=== PATIENT | female | born 2000 | race African-American/Black ===

== ENCOUNTER 2025-01-23 03:56 | Emergency (ER) | payer SELFPAY ==
[~2025-01-23] VITALS: Ht 175.3 cm; Wt 81.6 kg
[2025-01-23] MEDS ORDERED: ONDANSETRON HCL/PF 4 MG/2 ML VIAL ONE ×2 (04:12→05:12)
[2025-01-23] MEDS: ONDANSETRON HCL/PF 4 MG/2 ML VIAL IVP ONE (04:42)
[2025-01-23] MEDS: IV NS 0.9% 1,000 ML BAG IV ONE (04:42)
[2025-01-23 04:46] LABS: BASOPHILS % (AUTO) 0.3 % (0.0-2.0); EOSINOPHILS % (AUTO) 0.1 % (0.0-6.0); HEMATOCRIT 46 % (33-45); HEMOGLOBIN 15.5 g/dL (11.5-14.8); LYMPHOCYTES # (AUTO) 1.9 K/uL (0.8-4.8); LYMPHOCYTES % (AUTO) 17.6 % (20.0-44.0); MEAN CORPUSCULAR HEMOGLOBIN 30 PG (26.0-33.0); MEAN CORPUSCULAR HGB CONC 34 g/dl (31.0-36.0); MEAN CORPUSCULAR VOLUME 89 fL (82-100); MONOCYTES % (AUTO) 8.9 % (2.0-12.0); NEUTROPHILS % (AUTO) 73.1 % (43.0-81.0); PLATELET COUNT (AUTO) 295 K/uL (150-450); RED BLOOD CELL COUNT(AUTO) 5.15 MIL/uL (4.0-5.2); RED CELL DISTRIBUTION WIDTH 13.4 % (11.5-15.0); WHITE BLOOD COUNT (AUTO) 10.9 K/uL (4.3-11.0)
[2025-01-23 04:51] LABS: CALCIUM, SERUM 9.3 mg/dL (8.5-10.1); CREATININE 0.9 mg/dL (0.6-1.3); POTASSIUM 3.2 mmol/L (3.5-5.1)
[2025-01-23 04:57] LABS: ALBUMIN 4.1 g/dL (3.4-5.0); BILIRUBIN,DIRECT 0.3 mg/dL (0.0-0.2); BILIRUBIN,TOTAL 1.2 mg/dL (0.2-1.0); TOTAL PROTEIN, SERUM 8.5 g/dL (6.4-8.2)
[2025-01-23] MEDS ORDERED: KETOROLAC TROMETHAMINE 15 MG/ML VIAL ONE (05:11)
[2025-01-23] MEDS: KETOROLAC TROMETHAMINE 15 MG/ML VIAL IV ONE (05:15)
[2025-01-23] MEDS: ONDANSETRON HCL/PF 4 MG/2 ML VIAL IV ONE (05:15)
[2025-01-23] MEDS ORDERED: METOCLOPRAMIDE HCL 10 MG/2 ML VIAL ONE (05:27)
[2025-01-23] MEDS: METOCLOPRAMIDE HCL 10 MG/2 ML VIAL IV ONE (05:33)
[2025-01-23] MEDS ORDERED: POTASSIUM CHLORIDE 20 MEQ TAB.PRT.SR PO ONE (06:53)
[2025-01-23] MEDS: POTASSIUM CHLORIDE 20 MEQ TAB.PRT.SR PO ONE (06:55)
[2025-01-23] MEDS ORDERED: POLY119P PO (07:15)
[2025-01-23] MEDS ORDERED: ONDA4TAB5 PO (07:15)
[2025-01-23 07:23] LABS: APPEARANCE,URINE CLEAR (CLEAR); BILIRUBIN,URINE 2+ (NEGATIVE); BLOOD, URINE NEGATIVE Ery/uL (NEGATIVE); COLOR,URINE YELLOW (YELLOW); KETONES,URINE 3+ mg/dL (NEGATIVE); LEUKOCYTE ESTERASE ,URINE NEGATIVE (NEGATIVE); NITRITE, URINE POSITIVE (NEGATIVE); PH,URINE 6.5 (5.0-8.0); PROTEIN,URINE 2+ mg/dl (NEGATIVE); UGLUCOSE NEGATIVE (NEGATIVE)
[2025-01-23 07:26] LABS: PREGNANCY TEST URINE QUAL NEGATIVE (NEGATIVE)
[2025-01-23 07:34] VITALS: BP 140/68; TEMP 98.5; O2SAT 98
[2025-01-23 07:36] LABS: RBC,URINE 0-2 /HPF (0-2)
[2025-01-23 07:37] LABS: ADD URINE CULTURE YES; BACTERIA,URINE Moderate /HPF (None Seen); CALCIUM OXALATE CRYSTALS,UR Rare /HPF (None Seen); MUCUS,URINE Moderate /LPF (None Seen)
[2025-01-23] MEDS ORDERED: ONDANSETRON 4 MG TAB.RAPDIS ONE (07:41)
[2025-01-23] MEDS: ONDANSETRON 4 MG TAB.RAPDIS SL ONE (07:44)
[2025-01-24] MEDS ORDERED: ONDA4TAB5 PO (13:25)
== END 2025-01-23 07:46 | disposition home or self-care (01) ==
LOC: ER 04:02
DX: R11.2 Nausea with vomiting, unspecified (principal); K59.00 Constipation, unspecified; J45.909 Unspecified asthma, uncomplicated; F17.200 Nicotine dependence, unspecified, uncomplicated; R10.2 Pelvic and perineal pain
CPT/HCPCS: 99285; 74176; 96374; 96375; 96361; 96376; 85025; 80048; 87086; 83690; 80076; 84703; 81001; 36415; 84702; J1885; J2765; J2405 ×2; J7030; Q0162

== ENCOUNTER 2025-01-24 08:49 | Emergency (ER) | payer SELFPAY ==
[~2025-01-24] VITALS: Ht 165.1 cm; Wt 86.6 kg
[~2025-01-24 08:49] MED LIST: ONDA4TAB5 PO; POLY119P PO
[2025-01-24 09:39] LABS: BASOPHILS # (AUTO) 0.1 K/uL (0.0-0.2); BASOPHILS % (AUTO) 0.8 % (0.0-2.0); EOSINOPHILS % (AUTO) 0.5 % (0.0-6.0); HEMATOCRIT 47 % (33-45); HEMOGLOBIN 15.6 g/dL (11.5-14.8); LYMPHOCYTES # (AUTO) 1.9 K/uL (0.8-4.8); LYMPHOCYTES % (AUTO) 25.7 % (20.0-44.0); MEAN CORPUSCULAR HEMOGLOBIN 30 PG (26.0-33.0); MEAN CORPUSCULAR HGB CONC 33 g/dl (31.0-36.0); MEAN CORPUSCULAR VOLUME 90 fL (82-100); MONOCYTES # (AUTO) 0.7 K/uL (0.1-1.30); MONOCYTES % (AUTO) 8.9 % (2.0-12.0); NEUTROPHILS # (AUTO) 4.7 K/uL (1.8-8.9); NEUTROPHILS % (AUTO) 64.1 % (43.0-81.0); PLATELET COUNT (AUTO) 324 K/uL (150-450); RED BLOOD CELL COUNT(AUTO) 5.26 MIL/uL (4.0-5.2); RED CELL DISTRIBUTION WIDTH 13.5 % (11.5-15.0); WHITE BLOOD COUNT (AUTO) 7.4 K/uL (4.3-11.0)
[2025-01-24] MEDS: IV NS 0.9% 1,000 ML BAG IV ONE ×2 (09:43→10:15)
[2025-01-24 09:49] LABS: CALCIUM, SERUM 10.2 mg/dL (8.5-10.1); CREATININE 0.9 mg/dL (0.6-1.3); POTASSIUM 3.2 mmol/L (3.5-5.1)
[2025-01-24 09:50] VITALS: TEMP 99
[2025-01-24 09:55] LABS: ALBUMIN 4.7 g/dL (3.4-5.0); BILIRUBIN,DIRECT 0.3 mg/dL (0.0-0.2); BILIRUBIN,TOTAL 1.3 mg/dL (0.2-1.0); TOTAL PROTEIN, SERUM 9.3 g/dL (6.4-8.2)
[2025-01-24] MEDS ORDERED: HALOPERIDOL LACTATE INJ 5 MG/ML VIAL ONE (10:09)
[2025-01-24] MEDS ORDERED: diphenhydrAMINE HCL 50 MG/ML VIAL ONE (10:09)
[2025-01-24] MEDS: diphenhydrAMINE HCL 50 MG/ML VIAL IV ONE (10:14)
[2025-01-24] MEDS: HALOPERIDOL LACTATE INJ 5 MG/ML VIAL IV ONE (10:15)
[2025-01-24 10:39] LABS: APPEARANCE,URINE CLEAR (CLEAR); BILIRUBIN,URINE NEGATIVE (NEGATIVE); BLOOD, URINE NEGATIVE Ery/uL (NEGATIVE); COLOR,URINE YELLOW (YELLOW); KETONES,URINE TRACE mg/dL (NEGATIVE); LEUKOCYTE ESTERASE ,URINE NEGATIVE (NEGATIVE); NITRITE, URINE NEGATIVE (NEGATIVE); PROTEIN,URINE TRACE mg/dl (NEGATIVE); UGLUCOSE NEGATIVE (NEGATIVE)
[2025-01-24 10:42] LABS: PREGNANCY TEST URINE QUAL NEGATIVE (NEGATIVE)
[2025-01-24 10:56] LABS: ADD URINE CULTURE NO; BACTERIA,URINE Rare /HPF (None Seen); RBC,URINE 0-2 /HPF (0-2); WBC,URINE 0-2 /HPF (0-3)
[2025-01-24] MEDS ORDERED: ONDA4TAB5 PO (13:25)
[2025-01-24 14:44] VITALS: BP 124/69; O2SAT 100
== END 2025-01-24 14:55 | disposition home or self-care (01) ==
LOC: ER 09:00
DX: R11.15 Cyclical vomiting syndrome unrelated to migraine (principal); F17.200 Nicotine dependence, unspecified, uncomplicated; J45.909 Unspecified asthma, uncomplicated; K59.00 Constipation, unspecified; Z60.2 Problems related to living alone; Z79.899 Other long term (current) drug therapy
CPT/HCPCS: 99285; 96374; 96361; 96375; 93005; 85025; 80048; 83690; 80076; 84703; 81001; 36415; J1200; J1630; J7030 ×2

== ENCOUNTER 2025-04-03 07:54 | Emergency (ER) | payer SELFPAY ==
[~2025-04-03] VITALS: Ht 167.6 cm; Wt 77.1 kg
[2025-04-03] MEDS ORDERED: HALOPERIDOL LACTATE INJ 5 MG/ML VIAL ONE (08:25)
[2025-04-03] MEDS ORDERED: FAMOTIDINE/PF INJ 20 MG/2 ML VIAL IV ONE (08:25)
[2025-04-03] MEDS: HALOPERIDOL LACTATE INJ 5 MG/ML VIAL IV ONE (08:37)
[2025-04-03] MEDS: FAMOTIDINE/PF INJ 20 MG/2 ML VIAL IV ONE (08:37)
[2025-04-03] MEDS: IV NS 0.9% 1,000 ML BAG IV ONE (08:38)
[2025-04-03 08:41] LABS: PLATELET COUNT (AUTO) 252 K/uL (150-450); RED BLOOD CELL COUNT(AUTO) 4.19 MIL/uL (4.0-5.2); RED CELL DISTRIBUTION WIDTH 13.1 % (11.5-15.0); WHITE BLOOD COUNT (AUTO) 8.1 K/uL (4.3-11.0)
[2025-04-03 08:48] LABS: CALCIUM, SERUM 9.2 mg/dL (8.5-10.1); CREATININE 0.9 mg/dL (0.6-1.3); SODIUM SERUM 141.0 mmol/L (136-145); UREA NITROGEN, BLOOD 12.0 mg/dL (7-18)
[2025-04-03 08:54] LABS: ASPARTATE AMINOTRANSFERASE 21.0 U/L (15-37); TOTAL PROTEIN, SERUM 7.8 g/dL (6.4-8.2)
[2025-04-03 09:53] LABS: PREGNANCY TEST URINE QUAL NEGATIVE (NEGATIVE)
[2025-04-03] MEDS ORDERED: ONDA4TAB5 PO (12:23)
[2025-04-03 13:54] VITALS: BP 155/98; TEMP 98.5; O2SAT 99
== END 2025-04-03 13:55 | disposition home or self-care (01) ==
LOC: ER 07:56
DX: R11.2 Nausea with vomiting, unspecified (principal); R10.10 Upper abdominal pain, unspecified; R94.31 Abnormal electrocardiogram [ECG] [EKG]; F12.90 Cannabis use, unspecified, uncomplicated; F17.200 Nicotine dependence, unspecified, uncomplicated; J45.909 Unspecified asthma, uncomplicated; Z87.442 Personal history of urinary calculi; Z87.19 Personal history of other diseases of the digestive system; Z60.2 Problems related to living alone
CPT/HCPCS: 99284; 96374; 96375; 96361; 93005; 85025; 80048; 83690; 80076; 36415; 84703 ×2; J1200; J1630; J1308; J7030

== ENCOUNTER 2025-07-18 08:08 | Emergency (ER) | payer MEDICAID ==
[~2025-07-18] VITALS: Ht 167.6 cm; Wt 81.6 kg
[2025-07-18] MEDS: METOCLOPRAMIDE HCL 10 MG/2 ML VIAL IV ONE ×2 (09:30→12:28)
[2025-07-18] MEDS: IV NS 0.9% 1,000 ML BAG IV ONE ×2 (09:30→12:15)
[2025-07-18] MEDS ORDERED: HALOPERIDOL LACTATE INJ 5 MG/ML VIAL ONE (09:33)
[2025-07-18] MEDS: HALOPERIDOL LACTATE INJ 5 MG/ML VIAL IM ONE (09:38)
[2025-07-18 12:06] VITALS: TEMP 98
[2025-07-18] MEDS ORDERED: PANTOPRAZOLE 40 MG VIAL ONE (12:19)
[2025-07-18] MEDS ORDERED: METOCLOPRAMIDE HCL 10 MG/2 ML VIAL ONE (12:20)
[2025-07-18] MEDS: PANTOPRAZOLE 40 MG VIAL IV ONE (12:28)
[2025-07-18 12:42] LABS: PLATELET COUNT (AUTO) 327 K/uL (150-450); RED BLOOD CELL COUNT(AUTO) 4.53 MIL/uL (4.0-5.2); RED CELL DISTRIBUTION WIDTH 12.0 % (11.5-15.0); WHITE BLOOD COUNT (AUTO) 7.8 K/uL (4.3-11.0)
[2025-07-18 12:52] LABS: CALCIUM, SERUM 8.9 mg/dL (8.5-10.1); CREATININE 0.6 mg/dL (0.6-1.3); SODIUM SERUM 141.0 mmol/L (136-145); UREA NITROGEN, BLOOD 9.0 mg/dL (7-18)
[2025-07-18 12:58] LABS: ASPARTATE AMINOTRANSFERASE 201.0 U/L (15-37); TOTAL PROTEIN, SERUM 8.9 g/dL (6.4-8.2)
[2025-07-18] MEDS ORDERED: METO-295 PO (13:23)
[2025-07-18 13:25] LABS: APPEARANCE,URINE CLEAR (CLEAR); BLOOD, URINE 3+ Ery/uL (NEGATIVE); LEUKOCYTE ESTERASE ,URINE NEGATIVE (NEGATIVE); NITRITE, URINE POSITIVE (NEGATIVE); UGLUCOSE NEGATIVE (NEGATIVE)
[2025-07-18 13:27] LABS: ADD URINE CULTURE YES; SQUAMOUS EPITHELIAL CELL,UR Rare /HPF (None Seen)
[2025-07-18 14:00] VITALS: BP 138/85; O2SAT 98
[2025-07-19] MEDS ORDERED: ONDA4TAB5 PO (11:21)
== END 2025-07-18 14:12 | disposition home or self-care (01) ==
LOC: ER 08:08
DX: R11.15 Cyclical vomiting syndrome unrelated to migraine (principal); J45.909 Unspecified asthma, uncomplicated; F17.200 Nicotine dependence, unspecified, uncomplicated; F12.90 Cannabis use, unspecified, uncomplicated; R10.20 Pelvic and perineal pain unspecified side; Z60.2 Problems related to living alone
CPT/HCPCS: 99284; 96374; 96361; 96375; 85025; 87086; 83690; 81001; 36415; 80053; 96372; J1630; J2765; J7030 ×2; J2470

== ENCOUNTER 2025-07-19 08:40 | Emergency (ER) | payer MEDICAID ==
[~2025-07-19] VITALS: Ht 167.6 cm; Wt 81.6 kg
[~2025-07-19 08:40] MED LIST changes: +METO-295 PO
[2025-07-19 09:30] VITALS: TEMP 98.1
[2025-07-19] MEDS ORDERED: FAMOTIDINE/PF INJ 20 MG/2 ML VIAL IV ONE (09:32)
[2025-07-19] MEDS ORDERED: ONDANSETRON HCL/PF 4 MG/2 ML VIAL ONE (09:32)
[2025-07-19] MEDS: IV NS 0.9% 1,000 ML BAG IV ONE (09:51)
[2025-07-19] MEDS: FAMOTIDINE/PF INJ 20 MG/2 ML VIAL IV ONE (09:52)
[2025-07-19] MEDS: ONDANSETRON HCL/PF 4 MG/2 ML VIAL IVP ONE (09:52)
[2025-07-19 10:05] LABS: PLATELET COUNT (AUTO) 331 K/uL (150-450); RED BLOOD CELL COUNT(AUTO) 4.40 MIL/uL (4.0-5.2); RED CELL DISTRIBUTION WIDTH 11.9 % (11.5-15.0); WHITE BLOOD COUNT (AUTO) 7.5 K/uL (4.3-11.0)
[2025-07-19] MEDS ORDERED: HALOPERIDOL LACTATE INJ 5 MG/ML VIAL ONE (10:10)
[2025-07-19 10:12] LABS: CALCIUM, SERUM 9.1 mg/dL (8.5-10.1); CREATININE 0.8 mg/dL (0.6-1.3); SODIUM SERUM 139.0 mmol/L (136-145); UREA NITROGEN, BLOOD 6.0 mg/dL (7-18)
[2025-07-19] MEDS: HALOPERIDOL LACTATE INJ 5 MG/ML VIAL IV ONE (10:16)
[2025-07-19 10:22] LABS: ASPARTATE AMINOTRANSFERASE 169.0 U/L (15-37); TOTAL PROTEIN, SERUM 8.6 g/dL (6.4-8.2)
[2025-07-19] MEDS ORDERED: ONDA4TAB5 PO (11:21)
[2025-07-19 11:47] VITALS: BP 137/91; O2SAT 97
[2025-07-20] MEDS ORDERED: ONDA4TAB5 PO (08:27)
== END 2025-07-19 11:48 | disposition home or self-care (01) ==
LOC: ER 08:50
DX: R11.15 Cyclical vomiting syndrome unrelated to migraine (principal); J45.909 Unspecified asthma, uncomplicated; R10.20 Pelvic and perineal pain unspecified side; F17.200 Nicotine dependence, unspecified, uncomplicated; Z60.2 Problems related to living alone
CPT/HCPCS: 99284; 96374; 96375; 96361; 85025; 80048; 83690; 80076; 36415; 84702; J1630; J1308; J2405; J7030

== ENCOUNTER 2025-07-20 05:24 | Inpatient (IN) | payer MEDICAID ==
[~2025-07-20] VITALS: Ht 167.6 cm; Wt 53.5 kg
[2025-07-20] MEDS ORDERED: FAMOTIDINE/PF INJ 20 MG/2 ML VIAL IV ONE (06:34)
[2025-07-20] MEDS ORDERED: ONDANSETRON HCL/PF 4 MG/2 ML VIAL ONE (06:34)
[2025-07-20] MEDS: IV NS 0.9% 1,000 ML BAG IV ONE (06:34)
[2025-07-20 06:36] LABS: PLATELET COUNT (AUTO) 324 K/uL (150-450); RED BLOOD CELL COUNT(AUTO) 4.38 MIL/uL (4.0-5.2); RED CELL DISTRIBUTION WIDTH 12.0 % (11.5-15.0); WHITE BLOOD COUNT (AUTO) 6.2 K/uL (4.3-11.0)
[2025-07-20] MEDS: ONDANSETRON HCL/PF 4 MG/2 ML VIAL IVP ONE (06:38)
[2025-07-20] MEDS: FAMOTIDINE/PF INJ 20 MG/2 ML VIAL IV ONE (06:38)
[2025-07-20 06:52] LABS: CALCIUM, SERUM 9.0 mg/dL (8.5-10.1); CREATININE 0.9 mg/dL (0.6-1.3); SODIUM SERUM 140.0 mmol/L (136-145); UREA NITROGEN, BLOOD 4.0 mg/dL (7-18)
[2025-07-20] MEDS ORDERED: HALOPERIDOL LACTATE INJ 5 MG/ML VIAL ONE (06:58)
[2025-07-20] MEDS: HALOPERIDOL LACTATE INJ 5 MG/ML VIAL IV ONE (07:01)
[2025-07-20 07:02] LABS: ASPARTATE AMINOTRANSFERASE 109.0 U/L (15-37); TOTAL PROTEIN, SERUM 8.3 g/dL (6.4-8.2)
[2025-07-20] MEDS ORDERED: ONDA4TAB5 PO (08:27)
[2025-07-20 09:00] VITALS: O2SAT 99
[2025-07-20] MEDS ORDERED: POTASSIUM CL. PREMIX PERIPHER. 50 ML ONE (09:05)
[2025-07-20] MEDS: POTASSIUM CL. PREMIX PERIPHER. 50 ML IV SCH (09:10)
[2025-07-20] MEDS ORDERED: TEMAZEPAM 15 MG CAPSULE PO PRN (11:00)
[2025-07-20] MEDS ORDERED: Z GUARD REMEDY 4 OZ OINT TP PRN (11:00)
[2025-07-20] MEDS ORDERED: MAG HYDROX/AL HYDROX/SIMETH 30 ML UDC PO PRN (11:00)
[2025-07-20] MEDS ORDERED: ACETAMINOPHEN 325 MG TABLET PO PRN (11:00)
[2025-07-20] MEDS ORDERED: MAGNESIUM HYDROXIDE 30 ML UDC PO PRN (11:00)
[2025-07-20] MEDS ORDERED: CEFTRIAXONE 1 G in IV D5W 50 ML IV SCH (11:00)
[2025-07-20] MEDS: POTASSIUM CHLORIDE 20 MEQ POWDER PACKET PO ONE ×3 (11:16→17:15)
[2025-07-20] MEDS: PANTOPRAZOLE 40 MG VIAL IV SCH (12:45)
[2025-07-20] MEDS: IV NS 0.9% 1,000 ML IV PRN (12:46)
[2025-07-20] MEDS: ONDANSETRON HCL/PF 4 MG/2 ML VIAL IVP PRN (14:30)
[2025-07-20] MEDS: LORAZEPAM 1 MG TABLET PO PRN (15:10)
[2025-07-20 16:00] VITALS: BP 152/100; TEMP 98.1; O2SAT 100
[2025-07-20 20:00] VITALS: BP 122/82; TEMP 98.2; O2SAT 100
[2025-07-21 08:00] VITALS: BP 158/93; TEMP 97.9; O2SAT 100
== END 2025-07-21 08:30 | disposition left against medical advice (07) | DRG 249 ==
LOC: ER 05:26 → MED 08:43
PROVIDERS: ADMIT Nurse Practitioner Acute Care; ATTEND Internal Medicine
DX: R11.16 Cannabis hyperemesis syndrome (principal); E87.6 Hypokalemia; J45.909 Unspecified asthma, uncomplicated; N20.0 Calculus of kidney; F12.988 Cannabis use, unspecified with other cannabis-induced disorder; Z53.29 Procedure and treatment not carried out because of patient's decision for other reasons
CPT/HCPCS: 80048-TC; 80076-TC; 83690-TC; 84702-TC; 85025-TC; A4223; G0378; J1200; J1308; J1630; J2405; J2470; J3480; J7030; J7040